=== PATIENT | male | born 1955 | race Caucasian/White ===

== ENCOUNTER 2019-12-20 14:46 | Emergency (ER) | payer MEDICAID, SELFPAY ==
[~2019-12-20] VITALS: Ht 170.2 cm; Wt 70.3 kg
[2019-12-20 15:32] VITALS: Ht 170.2 cm; Wt 70.3 kg
[2019-12-20 16:56] VITALS: BP 104/61
== END 2019-12-20 17:30 | disposition home or self-care (01) ==
LOC: ED 14:46
DX: U07.1 COVID-19 (principal)
CPT/HCPCS: U0003-CS

== ENCOUNTER 2020-03-13 14:31 | Emergency (ER) | payer SELFPAY ==
[~2020-03-13] VITALS: Ht 170.2 cm; Wt 63.5 kg
[2020-03-13 14:33] VITALS: BP 115/68; Ht 170.2 cm; Wt 63.5 kg
== END 2020-03-13 15:10 | disposition home or self-care (01) ==
LOC: ED 14:31
DX: B34.9 Viral infection, unspecified (principal); Z20.828 Contact with and (suspected) exposure to other viral communicable diseases
CPT/HCPCS: U0003-CS